=== PATIENT | male | born 1940 | race Caucasian/White ===

== ENCOUNTER 2017-12-21 18:29 | Inpatient (IN) ==
[2017-12-21] MEDS ORDERED: Ondansetron 4 MG/2 ML VIAL IVP PRN (20:41)
[2017-12-21] MEDS ORDERED: OXYCODONE Oral CONC 10 MG/0.5 ML ORAL.SYG SL PRN (20:43)
[2017-12-21] MEDS: D5% in 0.45% NACL 1,000 ML IVC SCH (22:37)
[2017-12-22 06:33] LABS: Calcium 9.9 mg/dL (8.6-10.3)
--- NOTE | 2017-12-22 10:04 | General Surg History&Physical ---
Date of Encounter: 12/22/17 Time of Encounter: 09:58 Assessment and Plan (1) SBO (small bowel obstruction) Current Visit: Yes Status: Acute The assessment and plan as outlined above was discussed with the patient and/or family members who expressed understanding and agreement. All questions were answered. Partial small bowel obstruction with noted transition point suspected at a tiny bilobed. Umbilical ventral hernia. CT notes multiple mid to distal small bowel dilated loops measuring up to 4.6 cm in diameter with transition point as described. No free air, ascites, pneumatosis, or mesenteric edema. Status post cholecystectomy without evidence of fluid collection or inflammatory changes in the gallbladder fossa. Mild ventral body while edema. Additional incidental findings including hepatic steatosis, renal cyst, and adenomatous hyperplasia of the adrenal glands. He is distended, uncomfortable, and tympanic. Of note, the patient reported the "NG fell out, and I didn't let them put it back in." He reports feeling nauseated, short of breath related to discomfort and abdominal swelling, and denies passing flatus. He is not agreeable to having the NG tube replaced at this time. He states he would agree to an x-ray and labs to further evaluate. I did reinforce the need for NG tube given SBO and abdominal distention. PT states he will consider after testing. Plan: Admit for observation NPO, hold home meds, Supportive care and discomfort management IV fluids-bolus 0.9 slaine now for EVER D5.45 maintenance IV fluids PPI therapy DVT prophylaxis PRN antiemetics will need NG replaced. Will continue to discuss this with patient and make recommendation CT/CT abd pelvis wo no iv no oral IMPRESSION: 1. Mid to distal small bowel obstruction, with transition point suspected at a tiny bilobed periumbilical ventral hernia. No free air, ascites, pneumatosis, or mesenteric edema. 2. Status post cholecystectomy without evidence of fluid collection or inflammatory change in the gallbladder fossa. 3. Bi-iliac endograft noted. There is fusiform aneurysmal dilatation of the abdominal aorta, measuring up to 3.9 cm, mildly increased from the previous study dated 10/23/2013 where it measured 3.4 cm. Detailed assessment is limited on this unenhanced study. Follow-up recommendations below. 3.0-3.4 cm: Every 3 years. 3.5-3.9 cm: Every 1 year. 4. Mild ventral body wall edema. 5. Additional incidental findings include hepatic steatosis, renal cysts, and adenomatous hyperplasia of the adrenal glands. (2) Chronic anticoagulation Current Visit: Yes Status: Acute Status post ablation for atrial flutter [facility] 02/2014, status post maze for atrial fibrillation/2012 noted (failed many maze) currently taking baby aspirin daily. Per record review Coumadin with DC'd in March 2014 due to a G.I. bleed. (3) EVER (acute kidney injury) Current Visit: Yes Status: Acute The assessment and plan as outlined above was discussed with the patient and/or family members who expressed understanding and agreement. All questions were answered. Creatinine 1.50 today, 1.72 on 12/21, baseline appears to be .85 to 1.06 Plan: bolus with 0.9 normal saline 1 L continue maintenance fluids D5 .45 recheck labs in the AM. Avoid nephrotoxins (4) Umbilical hernia Current Visit: No Status: Acute The assessment and plan as outlined above was discussed with the patient and/or family members who expressed understanding and agreement. All questions were answered. See assessment/plan above Per ER notes, Procedure note with IV conscious sedation gentle pressure on his umbilicus and surrounding tissue seemed to reduce his hernia however it may be attempting to return. Qualifiers: Obstruction and gangrene presence: with obstruction but without gangrene Qualified Code(s): K42.0 - Umbilical hernia with obstruction, without gangrene (5) Thrombocytosis Current Visit: No Status: Chronic The assessment and plan as outlined above was discussed with the patient and/or family members who expressed understanding and agreement. All questions were answered. (6) Iron deficiency anemia due to chronic blood loss Current Visit: No Status: Chronic The assessment and plan as outlined above was discussed with the patient and/or family members who expressed understanding and agreement. All questions were answered. (7) Smoking history Current Visit: Yes Status: Acute The assessment and plan as outlined above was discussed with the patient and/or family members who expressed understanding and agreement. All questions were answered. Scheduled duonebs IS Nicotine patch Consult RT for aggressive pulmonary toileting and scheduled duonebs (8) T2DM (type 2 diabetes mellitus) Current Visit: Yes Status: Acute The assessment and plan as outlined above was discussed with the patient and/or family members who expressed understanding and agreement. All questions were answered. Hold metformin Q4H accuchesck while NPO Consult hospitalist for chronic conditions/comorbidity management Qualifiers: Diabetes mellitus complication status: with other specified complication Diabetes mellitus termite exterminator insulin use: without assisted use Qualified Code( s): E11.69 - Type 2 diabetes mellitus with other specified complication (9) COPD (chronic obstructive pulmonary disease) Current Visit: Yes Status: Acute The assessment and plan as outlined above was discussed with the patient and/or family members who expressed understanding and agreement. All questions were answered. See smoking history plan consult hospitalist for chronic conditions/comorbidity management Qualifiers: COPD type: COPD with acute exacerbation Qualified Code(s): J44.1 - Chronic obstructive pulmonary disease with (acute) exacerbation (10) ASHD (arteriosclerotic heart disease) Current Visit: Yes Status: Acute Status post left renal artery PTCA and stent placement 2012, static post iliac artery stenting, non-ischemic cardiomyopathy most recent echo with EF 60% 2013 (11) S/P Maze operation for atrial fibrillation Current Visit: No Status: Chronic Low-dose ASA for chronic anticoagulation. (12) S/P ablation of atrial flutter Current Visit: Yes Status: Acute Consult hospitalist for chronic condition/comorbidity management (13) Sleep apnea Current Visit: Yes Status: Acute Consult hospitalist for chronic condition/comorbidity management Qualifiers: Sleep apnea type: unspecified type Qualified Code(s): G47.30 - Sleep apnea , unspecified (14) HTN (hypertension) Current Visit: Yes Status: Chronic Consult hospitalist for chronic condition/comorbidity management Qualifiers: Hypertension type: essential hypertension Qualified Code(s): I10 - Essential (primary) hypertension (15) AAA (abdominal aortic aneurysm) without rupture Current Visit: Yes Status: Chronic Consult hospitalist for chronic condition/comorbidity management see CT report for updated imaging and recommendations (16) PVD (peripheral vascular disease) Current Visit: No Status: Chronic Consult hospitalist for chronic condition/comorbidity management History of Present Illness Chief complaint: nausea and vomiting HPI: Mr. Garay is a 76 year old male with a past medical history of type II diabetes mellitus not on insulin, atrial fibrillation with (failed mini-maze in February 2013, atrial flutter S/P ablation ([facility] 02/2014), anticoagulation with baby aspirin (Coumadin d/c'd in March 2014 because of G.I. bleed), CAD (left renal artery PTCA and iliac artery stenting), non-ischemic cardiomyopathy echocardiogram 10/2014 with EFF 60%, COPD, smoker 1 packs per day since age 21, hypertension, sleep apnea on CPAP, PVD, AAA, G.I. bleed, BPH, noted colonoscopy 2014 and right hemicolectomy 2014 multiple polyps that [facility] Dr. Stallworth (pt reports 3 feet of colon removed at that time. Surgical history includes renal artery stents, bilateral cataracts, colonoscopy with polypectomy, EGD, ablation and maze as previously described, lucrative loop recorder 05/2014, right eye surgery [facility], umbilical hernia and right hemicolectomy surgery for multiple polyps [facility] 08/02/2015, colonoscopy 10/2017, eardrum replaced it [facility] 10/2015 and recent surgical notably intervals surgical history of an uncomplicated robotic cholecystectomy with intraoperative choliangiogram on 12/16/2017 for biliary dyskinesia. He was noted to have hernia at that time and recommended to have surgical intervention on this coming Thursday. He reported to the emergency department per [facility] office recommendations for a four-day history of that abdominal pain, nausea, and uncontrollable vomiting that he reported as ho and dark green. He states he has not been able to hold down any food since his operation. He states that on the 1st day after the operation he began having nausea and vomiting and has not been able to keep anything down including liquids since that time. He denies fever, chills, black, bloody, or tarry stool, constipation, syncope, or near syncope. He endorses feelings of generalized weakness and fatigue, abdominal pain that is diffuse but worse around the belly button, continued vomiting, and reported loose stool yesterday. He denies passing gas. He was evaluated in the emergency department in was diagnosed with a small bowel obstruction with transition point possibly at an umbilical hernia. This was attempted to be reduced in the emergency department in the patient states that he felt no improvement afterwards. Past Med Surg Social Fam HX - Past Medical History Source: patient, old records reviewed Medical history: aortic aneurysm, atrial fibrillation, cancer, cardiomyopathy, COPD, coronary artery disease, diabetes, GI bleed, hyperlipidemia, hypertension , peripheral artery disease, other (AAA) Psychiatric history: depression - Past Surgical History Surgical History: angioplasty/stent, cancer surgery, cataract, cholecystectomy, colectomy, herniorrhaphy, LE stent(s), vascular surgery, other - Social History Smoking Status: Current every day smoker Smokeless Tobacco Status: No Alcohol use: none Drug use: none Medications and Allergies Aspirin [Lo-Dose Aspirin EC] 81 mg PO DAILY #0 10/05/17 [History] Atorvastatin [Lipitor] 40 mg PO DAILY 10/05/17 [History] Escitalopram [Lexapro] 20 mg PO DAILY 10/05/17 [History] Fenofibrate Nanocrystallized [Triglide] 160 mg PO DAILY 10/05/17 [History] Hyoscyamine SL [Levsin Sl] 1 tab SL Q4-6H PRN 10/05/17 [History] Lisinopril [Zestril] 5 mg PO DAILY 10/05/17 [History] Omeprazole [PriLOSEC] 20 mg PO DAILY 10/05/17 [History] Vit C/E/Zn/Coppr/Lutein/Zeaxan [Preservision Areds 2 Softgel] 1 cap PO DAILY #0 10/05/17 [History] buPROPion HCl [Zyban] 150 mg PO QAM 10/05/17 [History] metFORMIN [Glucophage] 500 mg PO BIDWM 10/05/17 [History] Albuterol Neb [Proventil Neb] 2.5 mg IH TID PRN 12/01/17 [History] OxyCODONE/APAP 5/325 [Percocet 5/325 MG] 1 each PO Q6HR PRN 7 Days #14 tablet [Rx] 3 Allergy/AdvReac Type Severity Reaction Status Date / Time rivaroxaban [From Xarelto] AdvReac See Verified 12/16/17 12:49 Comments Review of Systems All systems PM: reviewed and no additional remarkable complaints except as stated All systems PM: A 10-system review of systems was performed and is negative for pertinent findings except as documented above in the HPI. General Surgery Exam Initial Vital Signs Temp Pulse Resp BP Pulse Ox 97.6 F 89 16 140/70 94 12/21/17 19:56 12/21/17 19:56 12/21/17 19:56 12/21/17 19:56 12/21/17 19:56 - General physical appearance moderate distress, severe pain, obese, other (Regarding posture) - Eyes normal ocular movement - ENT atraumatic, normocephalic - Neck trachea midline, no venous distension - Respiratory other (Decreased breath sounds wheezing noted) - Cardiovascular Cardiovascular exam: Present: tachycardia, distant heart sounds - Abdomen Abdomen general surgery: Present: distended, tender. Absent: bowel sounds present Abdominal Tenderness: Present: diffusely (Diffusely tender but most centered around the umbilicus) Hernia: Present: umbilical - Integumentary Integumentary general surgery: Present: warm and dry - Neurologic Present: CN 2-12 grossly intact, normal coordination, normal sensation - Musculoskeletal Present: normal gait, other (garding posture) - Psychiatric Psychiatric general surgery: Present: A&Ox3, appropriate, oriented to person, oriented to place, oriented to time, speech is normal, memory intact Results - Labs 12/22/17 10:16 12/22/17 05:36 Abnormal lab results Chloride 95 mEq/L (98-107) L 12/22/17 05:36 BUN 56 mg/dL (8-23) H 12/22/17 05:36 Creatinine 1.50 mg/dL (0.70-1.30) H 12/22/17 05:36 Est GFR ( Amer) 55 (> 60) L 12/22/17 05:36 Est GFR (Non-Af Amer) 46 (> 60) L 12/22/17 05:36 BUN/Creatinine Ratio 37 (6-26) H 12/22/17 05:36 Glucose 168 mg/dL (70-105) H 12/22/17 05:36 POC Glucose 142 (58-89) H 12/22/17 05:23 Calculated Osmolality 303 (280-300) H 12/22/17 05:36 Diabetes panel 12/22/17 Range/Units 05:36 Sodium 137 (136-145) mEq/L Potassium 4.0 (3.5-5.1) mEq/L Chloride 95 L (98-107) mEq/L Carbon Dioxide 29 (23-29) mEq/L BUN 56 H (8-23) mg/dL Creatinine 1.50 H (0.70-1.30) mg/dL Glucose 168 H (70-105) mg/dL Calcium 9.9 (8.6-10.3) mg/dL Calcium panel 12/22/17 Range/Units 05:36 Calcium 9.9 (8.6-10.3) mg/dL Pituitary panel 12/22/17 Range/Units 05:36 Sodium 137 (136-145) mEq/L Potassium 4.0 (3.5-5.1) mEq/L Chloride 95 L (98-107) mEq/L Carbon Dioxide 29 (23-29) mEq/L BUN 56 H (8-23) mg/dL Creatinine 1.50 H (0.70-1.30) mg/dL Glucose 168 H (70-105) mg/dL Calcium 9.9 (8.6-10.3) mg/dL Adrenal panel 12/22/17 Range/Units 05:36 Sodium 137 (136-145) mEq/L Potassium 4.0 (3.5-5.1) mEq/L Chloride 95 L (98-107) mEq/L Carbon Dioxide 29 (23-29) mEq/L BUN 56 H (8-23) mg/dL Creatinine 1.50 H (0.70-1.30) mg/dL Glucose 168 H (70-105) mg/dL Calcium 9.9 (8.6-10.3) mg/dL All other labs normal.
[2017-12-22] MEDS ORDERED: Naloxone 0.4 MG/ML INJ IVP PRN (10:14)
[2017-12-22] MEDS ORDERED: OXYCODONE Oral CONC 10 MG/0.5 ML ORAL.SYG SL PRN (10:14)
[2017-12-22] MEDS ORDERED: 0.9 % Sodium Chloride 1,000 ML IVC SCH (10:15)
[2017-12-22] MEDS ORDERED: *HR* FentaNYL (PF) 100 MCG/2 ML VIAL IVP ONE (10:24)
[2017-12-22] MEDS ORDERED: *HR* Promethazine 25 MG/ML VIAL IM ONE (10:25)
[2017-12-22 10:30] LABS: Hematocrit 39.9 % (37.5-50.1); Hemoglobin 11.8 g/dL (12.9-16.9); Mean Corpuscular HGB Conc 29.6 g/dL (31.6-35.5); Mean Corpuscular Hemoglobin 25.8 pg (28.0-33.3); Mean Corpuscular Volume 87.3 fL (83.0-100.0); Mean Platelet Volume 13.6 fL (9.4-12.4); Nucleated Red Blood Cells 0.9 /100 WBC (0); Platelet Count 311 K/mcL (140-400); Red Blood Count 4.57 M/mcL (4.19-5.50); Red Cell Distribution Width 25.2 % (11.5-14.5)
[2017-12-22 10:46] LABS: INR 1.1; Prothrombin Time 11.8 Seconds (9.4-12.1)
[2017-12-22] MEDS ORDERED: *HR* Dextrose 50 % in Water (Syg) 50 ML SYRINGE IVP PRN (11:07)
[2017-12-22] MEDS ORDERED: Dextrose Gel 15 GM/37.5 ML TUBE PO PRN ×2 (11:07)
[2017-12-22] MEDS ORDERED: D5% in Water 1,000 ML IVC PRN (11:07)
[2017-12-22 11:24] LABS: Anisocytosis 3+ (Not Present); Eosinophils # 0.3 K/mcL (0.0-0.6); Lymphocytes # 0.7 K/mcL (0.6-4.6); Platelet Estimate Normal (Normal)
[2017-12-22 11:25] LABS: Polychromasia 1+ (Not Present); Target Cells 1+ (Not Present)
[2017-12-22] MEDS: Pantoprazole 40 MG VIAL IVP SCH (11:41)
[2017-12-22] MEDS: Insulin LISPRO 300 UNITS/3 ML VIAL SQ SCH ×3 (11:50→23:24)
[2017-12-22] MEDS: Ipratropium/Albuterol Neb 3 ML IH SCH ×4 (12:05→23:08)
[2017-12-22] MEDS: Ondansetron 4 MG/2 ML VIAL IVP SCH ×4 (14:39→23:23)
[2017-12-22] MEDS: Nicotine 14 MG PATCH.TD24 TD SCH (16:00)
[2017-12-22] MEDS: *HR* Heparin 5,000 UNIT/ML VIAL SQ SCH (17:24)
--- NOTE | 2017-12-22 18:25 | Internal Med History&Physical ---
<JeremierosemaryyassineGrabiel collier - Last Filed: 12/22/17 19:33> Date of Encounter: 12/22/17 Time of Encounter: 17:30 Assessment and Plan (1) SBO (small bowel obstruction) Current visit: Yes Status: Acute Acute SBO. Pt. reports sx began four days ago w/abdominal pain, nausea, vomiting , reduced bowel output and flatus. CT of the abdomen and pelvis today without contrast shows mid to distal small bowel obstruction with transition point suspected at a tiny bilobed periumbilical ventral hernia. No free air, ascites , pneumatosis, or mesenteric edema. CT notes multiple mid to distal small bowel dilated loops measuring up to 4.6 cm in diameter with transition point as described. Status post cholecystectomy without evidence of fluid collection or inflammatory changes in the gallbladder fossa. Mild ventral body with edema. Additional incidental findings including hepatic steatosis, renal cyst, and adenomatous hyperplasia of the adrenal glands. Patient reports abdominal pain, nausea, vomiting, shortness of breath, and distended abdomen. Patient had previous NG tube which fell out and does not want tube replaced at this time. NPO d/t current SBO and N/V. Surgical intervention planned for a.m. Pts. oral meds held. IV fluids. PPI therapy. Anti-emetics PRN. Continued discussion w/pt. regarding NG tube placement. Pt. is high risk for further morbidity and further complications based on current sx and SBO requiring surgical intervention, hx of GI bleed r/t current H/H changes, EVER, hx, and risk factors. Inpatient. (2) EVER (acute kidney injury) Current visit: Yes Status: Acute Acute kidney injury w/creatinine of 1.50 and GFR of 46 on admission. Pt. receiving IV fluids. Monitor strict I&O. Monitor renal function in f/u labs and avoid nephrotoxins. (3) CAD (coronary artery disease) Current visit: Yes Status: Chronic Hx of chronic CAD. Pts. current medications currently held d/t SBO. Hydralazine 10 mg IVP Q6 PRN for HTN. Continuous tele. Continue pts. meds post-surgery. Qualifiers: Coronary Disease-Associated Artery/Lesion type: [place] artery [place] vs. transplanted heart: [place] heart Associated angina: angina presence unspecified Qualified Code(s): I25.10 - Atherosclerotic heart disease of [place] coronary artery without angina pectoris (4) COPD (chronic obstructive pulmonary disease) Current visit: Yes Status: Chronic Hx of chronic COPD. Stable. Lungs clear on exam. Pt. reports mild SOB r/t current abdominal pain. Supplemental O2 w/titration and SpO2 monitoring. DuoNebs Q4 scheduled. Continue inhalers. Qualifiers: COPD type: unspecified COPD Qualified Code(s): J44.9 - Chronic obstructive pulmonary disease, unspecified (5) T2DM (type 2 diabetes mellitus) Current visit: Yes Status: Chronic Hx of chronic diabetes controlled by oral anti-hyperglycemics. Hold Glucophage. Low-dose correction insulin sliding scale w/hypoglycemic protocol. BG checks Q$ d/t NPO status. A1c in a.m. labs. Qualifiers: Diabetes mellitus complication status: with other specified complication Diabetes mellitus detention insulin use: without terminal press operator use Qualified Code( s): E11.69 - Type 2 diabetes mellitus with other specified complication (6) AAA (abdominal aortic aneurysm) without rupture Current visit: Yes Status: Chronic Hx of chronic AAA w/o rupture. CT of the abdomen/pelvis without contrast shows fusiform aneurysmal dilatation of the abdominal aorta measuring up to 3.9 cm, mildly increased from the previous study dated 10/23/13 where it measured 3.4 cm. Follow-up recommendations by 3.5-3.9 cm every 1 year. F/u w/ PCP. (7) HTN (hypertension) Current visit: Yes Status: Chronic Hx of chronic HTN. Monitor pt. and VS. Hydralazine 10 mg IVP Q6 IVP PRN for HTN. Continue lisinopril post-surgery. Qualifiers: Hypertension type: essential hypertension Qualified Code(s): I10 - Essential (primary) hypertension (8) HLD (hyperlipidemia) Current visit: Yes Status: Chronic Hx of chronic HLD. Lipid panel in a.m. labs. Continue Lipitor post-surgery. Qualifiers: Hyperlipidemia type: pure hypercholesterolemia Qualified Code(s): E78.00 - Pure hypercholesterolemia, unspecified; E78.0 - Pure hypercholesterolemia (9) Iron deficiency anemia due to chronic blood loss Current visit: Yes Status: Chronic Hx of chronic anemia d/t blood loss. Hgb 11.8 and HCT 39.9 on 12/22. Was 12.2 and 39.8 on 12/21, up from 8.9 and 33.4 on 12/01. Monitor pt. for signs of bleeding. H/H in a.m. labs. (10) History of atrial fibrillation Current visit: Yes Status: Resolved Hx of atrial fibrillation. Pt. is post-ablation and is currently in sinus rhythm. Continuous tele. (11) DVT prophylaxis Current visit: Yes Status: Acute Heparin 5,000 units SQ Q8 for DVT prophylaxis. Bilateral SCDs on LEs for post- surgery. Monitor pt. for signs of bleeding. Internal Medicine - H&P: HPI Chief complaint: Abdominal Pain Admitted From: Intrahospital Transfer Plans for Post Hospital Care: Home History of present illness: Mr. Garay is a 76 year old male with medical hx of aortic aneurysm, history of atrial fibrillation, cancer, cardiomyopathy, COPD, CAD, diabetes, previous GI bleeding, HLD, HTN, and PAD presents from the [facility] ED with chief complaint of abdominal pain and distention, and SOB for the past several days w/ worsening sx. Pt. reports hx of GI bleeding d/t Xarelto but denies current bleeding. Pt. reports some nausea and dizziness w/ambulation but denies recent illness and recent bowel movement, vomiting, ability to pass flatus, changes in vision, chest pain, palpitations, headache, cough, chest congestion, unusual bleeding, pedal edema, numbness, tingling, pre-syncope, or syncope. Past Med Surg Social Fam HX - Past Medical History Source: patient, old records reviewed Medical history: aortic aneurysm, atrial fibrillation, cancer, cardiomyopathy, COPD, coronary artery disease, diabetes, GI bleed, hyperlipidemia, hypertension , peripheral artery disease, other (AAA) Psychiatric history: depression - Past Surgical History Surgical History: angioplasty/stent, cancer surgery, cataract, cholecystectomy, colectomy, herniorrhaphy, LE stent(s), vascular surgery, other - Social History Smoking Status: Current every day smoker Smokeless Tobacco Status: No Alcohol use: none Drug use: none Current living situation: Home, With Family Activity Level: Independent ambulation, Uses cane/walker Recent Out of Country Travel Within the Last 8 Weeks: No Exposure or Possible Exposure to Illness During Travel: No Internal Medicine - H&P: Meds Aspirin [Lo-Dose Aspirin EC] 81 mg PO DAILY #0 10/05/17 [History] Atorvastatin [Lipitor] 40 mg PO DAILY 10/05/17 [History] Escitalopram [Lexapro] 20 mg PO DAILY 10/05/17 [History] Fenofibrate Nanocrystallized [Triglide] 160 mg PO DAILY 10/05/17 [History] Hyoscyamine SL [Levsin Sl] 1 tab SL Q4-6H PRN 10/05/17 [History] Lisinopril [Zestril] 5 mg PO DAILY 10/05/17 [History] Omeprazole [PriLOSEC] 20 mg PO DAILY 10/05/17 [History] Vit C/E/Zn/Coppr/Lutein/Zeaxan [Preservision Areds 2 Softgel] 1 cap PO DAILY #0 10/05/17 [History] buPROPion HCl [Zyban] 150 mg PO QAM 10/05/17 [History] metFORMIN [Glucophage] 500 mg PO BIDWM 10/05/17 [History] Albuterol Neb [Proventil Neb] 2.5 mg IH TID PRN 12/01/17 [History] OxyCODONE/APAP 5/325 [Percocet 5/325 MG] 1 each PO Q6HR PRN 7 Days #14 tablet [Rx] 3 Allergy/AdvReac Type Severity Reaction Status Date / Time rivaroxaban [From Xarelto] AdvReac See Verified 12/16/17 12:49 Comments All Systems PM: A 10-system review of systems was performed and is negative for pertinent findings except as documented above in the HPI. - Constitutional Constitutional: no chills, no fever(s), no night sweats - EENT Eyes: no change in vision, no discharge, no pain, no photophobia Ears: no ear discharge, no ear pain, no tinnitus Nose, mouth and throat: no dysphagia, no nasal discharge, no neck pain, no sore throat - Breasts Breasts: as per HPI - Cardiovascular Cardiovascular ROS IM: as per HPI, dyspnea, dyspnea on exertion, no chest pain, no diaphoresis, no lightheadedness, no palpitations, no syncope - Respiratory Respiratory: as per HPI, dyspnea, dyspnea on exertion, no cough, no wheezing, no excessive phlegm production - Gastrointestinal Gastrointestinal: as per HPI, abdominal pain, change in bowel habits (No bowel movement or flatus recently), nausea, no diarrhea, no hematemesis, no hematochezia, no melena, no vomiting - Genitourinary Genitourinary ROS male: as per HPI - Musculoskeletal Musculoskeletal ROS IM: no numbness, no tingling - Integumentary Integumentary IM: no rash, no unusual bruising - Neurological Neurological ROS: as per HPI, dizziness, no confusion, no convulsions, no focal weakness, no numbness, no tingling, no tremor(s) - Psychiatric Psychiatric: as per HPI, depression - Endocrine Endocrine IM: as per HPI - Hematologic/Lymphatic Hematologic/Lymphatic: no easy bruising - Allergic/Immunologic Allergic/Immunologic: as per HPI - Constitutional Vitals: Temp Pulse Resp BP Pulse Ox 98.5 F 86 16 113/69 94 12/22/17 16:18 12/22/17 16:18 12/22/17 16:45 12/22/17 16:18 12/22/17 16:45 General appearance: Present: cooperative, A&O X 3, pleasant, no acute distress, obese, answers questions appropriately - Head Head exam: Present: atraumatic, normocephalic - Eye Eye exam: Present: PERRL, conjuntiva pink, sclera anicteric Pupils: Present: PERRL - ENT ENT exam: Present: normal exam - Neck Neck exam general surgery: Present: supple, trachea midline. Absent: lymphadenopathy - Respiratory Respiratory exam: Present: CTAB. Absent: accessory muscle use, rales, rhonchi, wheezes - Cardiovascular Cardiovascular exam: Present: RRR, +S1, +S2. Absent: diastolic murmur, gallop, rubs, systolic murmur - GI/Abdominal GI/Abdominal exam: Present: normal bowel sounds, soft, no peritoneal signs. Absent: distended, tenderness - Rectal Rectal exam: Present: deferred - Additional comments: exam deferred. - Extremities Exam Extremities exam: Present: warm, radial pulses palpable and symmetrical. Absent : calf tenderness, cyanotic, pedal edema - Back Exam Back exam: Present: normal inspection - Neurological Exam Neurological exam: Present: CN II-XII intact, oriented X3, no focal deficits. Absent: pronater drift, facial droop, speech deficit - Psychiatric Psychiatric exam: Present: normal affect, normal mood - Skin Skin exam: Present: dry, intact Internal Med - H&P Results - Labs CBC & Chem 7: 12/22/17 10:16 12/22/17 05:36 Labs: Short CBC 12/22/17 Range/Units 10:16 WBC 7.0 (4.3-11.1) K/mcL Hgb 11.8 L (12.9-16.9) g/dL Hct 39.9 (37.5-50.1) % Plt Count 311 (140-400) K/mcL Neutrophils # 5.0 (1.6-8.9) K/mcL BMP 12/22/17 05:36 Sodium 137 Potassium 4.0 Chloride 95 L Carbon Dioxide 29 BUN 56 H Creatinine 1.50 H Glucose 168 H Calcium 9.9 - EKG Data EKG shows normal: sinus rhythm - EKG Data Prior EKG available for review: no EKG comments: 12/22/17 18:35 EKG dated 12/22/17 shows sinus rhythm and nonspecific T-wave abnormality. - Impressions ITS Impressions Abdomen X-Ray 12/22/17 10:22 IMPRESSION: 1. Overall no significant interval change of small bowel dilation related to small bowel obstruction. No free air. D/ / 12/22/2017 11:47:04 Carolyn Brennan MD / Edith Dwyer Interpreting Provider: Carolyn Brennan MD Chest X-Ray 12/22/17 10:22 IMPRESSION: Stable chest with no new acute cardiopulmonary findings. D/ / Carolyn Brennan MD / Carolyn Brennan MD Interpreting Provider: Carolyn Brennan MD - Diagnostic Studies Abdominal x-ray Additional comments: Impressions Abdomen X-Ray 12/22/17 10:22 IMPRESSION: 1. Overall no significant interval change of small bowel dilation related to small bowel obstruction. No free air. D/ / 12/22/2017 11:47:04 Carolyn Brennan MD / Edith Dwyer Interpreting Provider: Carolyn Brennan MD Chest x-ray Additional comments: Impressions Chest X-Ray 12/22/17 10:22 IMPRESSION: Stable chest with no new acute cardiopulmonary findings. D/ / Carolyn Brennan MD / Carolyn Brennan MD Interpreting Provider: Carolyn Brennan MD <Yoni Roberts - Last Filed: 12/22/17 23:36> Date of Encounter: 12/22/17 Internal Medicine - H&P: HPI History of present illness: Mr. Garay is a 76 year old male All Systems PM: A 10-system review of systems was performed and is negative for pertinent findings except as documented above in the HPI. - Constitutional Vitals: Temp Pulse Resp BP Pulse Ox 97.6 F 86 16 106/64 93 12/22/17 23:24 12/22/17 23:24 12/22/17 23:24 12/22/17 23:24 12/22/17 23:24 Internal Med - H&P Results - Labs CBC & Chem 7: 12/22/17 10:16 12/22/17 05:36 Labs: Short CBC 12/22/17 Range/Units 10:16 WBC 7.0 (4.3-11.1) K/mcL Hgb 11.8 L (12.9-16.9) g/dL Hct 39.9 (37.5-50.1) % Plt Count 311 (140-400) K/mcL Neutrophils # 5.0 (1.6-8.9) K/mcL BMP 12/22/17 05:36 Sodium 137 Potassium 4.0 Chloride 95 L Carbon Dioxide 29 BUN 56 H Creatinine 1.50 H Glucose 168 H Calcium 9.9 - Impressions ITS Impressions Abdomen X-Ray 12/22/17 10:22 IMPRESSION: 1. Overall no significant interval change of small bowel dilation related to small bowel obstruction. No free air. D/ / 12/22/2017 11:47:04 Carolyn Brennan MD / Edith Dwyer Interpreting Provider: Carolyn Brennan MD Chest X-Ray 12/22/17 10:22 IMPRESSION: Stable chest with no new acute cardiopulmonary findings. D/ / Carolyn Brennan MD / Carolyn Brennan MD Interpreting Provider: Carolyn Brennan MD - Attending Attestation I have personally performed a face to face evaluation on this patient. I have reviewed and agree with the care plan except that noted above is a consultation note and not a history and physical. History and Exam by me shows: Patient presented to the hospital yesterday with abdominal distention nausea and vomiting. He is status post laparoscopic cholecystectomy 2 weeks ago. He was found to have a ventral hernia which was reduced. Currently reports pain is 0/10, he tolerated oral diet. His nausea has resolved. Patient denies chest pain with exertion and shortness of breath. He does say that his heart rate increases to 120 when he ambulates 100 feet on flat ground. He cannot walk up stairs due to chronic back pain and sciatica. Exercise capacity is less than 4MET. His calculated RCR I is to which suggests a perioperative risk of cardiovascular complication of 6.6. He did have a stress test done and 2016 less than 4 months ago which was negative. A small sized perfusion defect likely representing artifact per medical record review. Gated EF was 64%. Plan: Proceed with surgery with no further cardiac workup necessary. I advised smoking cessation. Continue with IV fluids for acute renal failure due to volume depletion secondary to protracted vomiting and nausea.
--- NOTE | 2017-12-22 19:32 | Anesthesia Evaluation PreOp ---
Date of Encounter: 12/22/17 Time of Encounter: 20:47 - Past History Planned Operation: Robotic lap incisional hernia repair Cardiac History: HTN, Hyperlipidemia, Arrhythmia (atrial flutter s/p ablation, atrial fibrillation - hasn't had issues in a long time) Pulmonary History: Smoker, COPD FOOD OPERATIONS MANAGER History: Denies Any Significant HX Other Medical History: Diabetes Type II, Other (currently with small bowel obstruction) Anesthesia History: No Prior Anesthetic Complications, Past Anesthesia (Recent cholecystectomy) Alcohol Use: none Drug use: none Medications and Allergies Aspirin [Lo-Dose Aspirin EC] 81 mg PO DAILY #0 10/05/17 [History] Atorvastatin [Lipitor] 40 mg PO DAILY 10/05/17 [History] Escitalopram [Lexapro] 20 mg PO DAILY 10/05/17 [History] Fenofibrate Nanocrystallized [Triglide] 160 mg PO DAILY 10/05/17 [History] Hyoscyamine SL [Levsin Sl] 1 tab SL Q4-6H PRN 10/05/17 [History] Lisinopril [Zestril] 5 mg PO DAILY 10/05/17 [History] Omeprazole [PriLOSEC] 20 mg PO DAILY 10/05/17 [History] Vit C/E/Zn/Coppr/Lutein/Zeaxan [Preservision Areds 2 Softgel] 1 cap PO DAILY #0 10/05/17 [History] buPROPion HCl [Zyban] 150 mg PO QAM 10/05/17 [History] metFORMIN [Glucophage] 500 mg PO BIDWM 10/05/17 [History] Albuterol Neb [Proventil Neb] 2.5 mg IH TID PRN 12/01/17 [History] OxyCODONE/APAP 5/325 [Percocet 5/325 MG] 1 each PO Q6HR PRN 7 Days #14 tablet [Rx] 3 Allergy/AdvReac Type Severity Reaction Status Date / Time rivaroxaban [From Xarelto] AdvReac See Verified 12/16/17 12:49 Comments - Meds/Allergy Pre-op Review Medications Reviewed: Yes Allergies Reviewed: Yes Beta Blockers on Current Med List: No Anesthesia Results - Labs 12/22/17 10:16 12/22/17 05:36 - Imaging EKG: report reviewed, image reviewed (SINUS RHYTHM NONSPECIFIC T-WAVE ABNORMALITY) Anesthesia Exam Last Vital Signs Temp 98.5 F 12/22/17 16:18 Pulse 86 12/22/17 16:18 Resp 16 12/22/17 16:45 BP 113/69 12/22/17 16:18 Pulse Ox 94 12/22/17 16:45 Weight: 93 kg - HEENT Pupil (Motor): Pupils equal, EOMI Mallampati: III Teeth: Normal Oral Opening: Greater than 3 - FOOD OPERATIONS MANAGER LOC: Oriented - Cardiac Rhythm: Regular Murmur: None - Pulmonary Breath Sounds: bilateral Clear Respiratory Effort: Symmetrical Anesthesia Assess/Plan ASA Score: 3 Modified Greg Scale for Level of Consciousness: Cooperative, oriented, and tranquil Anesthetic Plan: General Monitoring Plan: Standard Monitors Recovery Plan: PACU
[2017-12-22] MEDS: D5% in 0.45% NACL 1,000 ML IVC SCH (20:48)
[2017-12-22] MEDS ORDERED: 0.9 % Sodium Chloride 500 ML IVC ONE (23:35)
[2017-12-23] MEDS: OXYCODONE Oral CONC 10 MG/0.5 ML ORAL.SYG SL PRN ×2 (02:53→07:57)
[2017-12-23] MEDS: Ipratropium/Albuterol Neb 3 ML IH SCH ×6 (04:22→23:55)
[2017-12-23] MEDS: *HR* Heparin 5,000 UNIT/ML VIAL SQ SCH ×2 (05:10→19:52)
[2017-12-23] MEDS: Ondansetron 4 MG/2 ML VIAL IVP SCH ×2 (05:15→07:49)
[2017-12-23] MEDS: Insulin LISPRO 300 UNITS/3 ML VIAL SQ SCH ×3 (06:24→19:55)
[2017-12-23 07:12] LABS: Hemoglobin A1C 6.1 %
[2017-12-23 07:15] LABS: Hemoglobin 11.5 g/dL (12.9-16.9)
[2017-12-23 07:17] LABS: Hematocrit 39.4 % (37.5-50.1); Mean Corpuscular HGB Conc 29.2 g/dL (31.6-35.5); Mean Corpuscular Hemoglobin 25.7 pg (28.0-33.3); Mean Corpuscular Volume 88.1 fL (83.0-100.0); Mean Platelet Volume 14.4 fL (9.4-12.4); Monocytes # 1.1 K/mcL (0.0-1.3); Platelet Count 286 K/mcL (140-400); Red Blood Count 4.47 M/mcL (4.19-5.50); Red Cell Distribution Width 25.2 % (11.5-14.5)
[2017-12-23 07:29] LABS: Potassium 3.1 mEq/L (3.5-5.1)
[2017-12-23 07:30] LABS: Chol/HDL Ratio 3.3 (0-4.9)
[2017-12-23] MEDS: Nicotine 14 MG PATCH.TD24 TD SCH (07:49)
[2017-12-23] MEDS: Pantoprazole 40 MG VIAL IVP SCH (07:49)
[2017-12-23 09:17] LABS: Basophils # 0.1 K/mcL (0.0-0.2); Eosinophils # 0.3 K/mcL (0.0-0.6); Lymphocytes # 0.7 K/mcL (0.6-4.6); Neutrophils # 4.8 K/mcL (1.6-8.9)
[2017-12-23 09:18] LABS: Anisocytosis 1+ (Not Present); Platelet Estimate Normal (Normal); Polychromasia 1+ (Not Present)
[2017-12-23] MEDS ORDERED: Potassium Chloride 40 MEQ, Lidocaine 1% 2 ML in D5% in Water 500 ML IVPB ONE (13:13)
--- NOTE | 2017-12-23 15:48 | Internal Med Progress Note ---
<Roman Garcia - Last Filed: 12/23/17 17:55> Date of Encounter: 12/23/17 Time of Encounter: 15:48 - Assessment and plan (1) SBO (small bowel obstruction) Current Visit: Yes Status: Acute Assessment and plan: CT notes mid to distal small bowel obstruction with changes in points suspected at periumbilical ventral hernia. Patient has plans to go to surgery with Dr. Leroy to undergo a robotic laparoscopic incisional hernia repair this evening. Patient is nothing by mouth, oral meds held, receiving IV fluids, zosyn, PPI therapy, antiemetics when necessary per surgery. Potassium is 3.1 and replacement was initiated, plan is to replace pending IV fluid choice of surgeon status post surgery. (2) EVER (acute kidney injury) Current Visit: Yes Status: Acute Assessment and plan: Patient experienced a KI his creatinine clearance is improved from 1.50-1.45 since admission. His normal range appears to be around 1.05. He received fluids. Strict I&O's. We will continue to monitor the patient's renal function replace electrolytes as mentioned above. (3) CAD (coronary artery disease) Current Visit: No Status: Chronic Assessment and plan: History of CAD. Current medications held due to SBO. Continue patient's medications status post surgery. Qualifiers: Coronary Disease-Associated Artery/Lesion type: [place] artery [place] vs. transplanted heart: [place] heart Associated angina: angina presence unspecified Qualified Code(s): I25.10 - Atherosclerotic heart disease of [place] coronary artery without angina pectoris (4) COPD (chronic obstructive pulmonary disease) Current Visit: Yes Status: Chronic Assessment and plan: History of chronic COPD. Stable at this time. Lungs were clear to auscultation bilaterally. Not currently on oxygen and satting well. Patient has scheduled DuoNeb's. Qualifiers: COPD type: unspecified COPD Qualified Code(s): J44.9 - Chronic obstructive pulmonary disease, unspecified (5) T2DM (type 2 diabetes mellitus) Current Visit: Yes Status: Chronic Assessment and plan: Patient is on low-dose traction insulin sliding scale. Qualifiers: Diabetes mellitus complication status: with other specified complication Diabetes mellitus terminal supervisor insulin use: without usp use Qualified Code( s): E11.69 - Type 2 diabetes mellitus with other specified complication (6) AAA (abdominal aortic aneurysm) without rupture Current Visit: Yes Status: Chronic Assessment and plan: Patient has history of AAA without rupture and graft. The CT of his abdomen and pelvis did show an abdominal aorta measuring up to 3.9 cm which was increased from an exam done in 2013. Follow-up recommendations at this time require one-year evaluations. Plan for follow-up with PCP. (7) HTN (hypertension) Current Visit: Yes Status: Chronic Assessment and plan: Patient has hydralazine 10 mg IV every 6 hours when necessary for hypertension. We will continue his home medications status post surgery. Qualifiers: Hypertension type: essential hypertension Qualified Code(s): I10 - Essential (primary) hypertension (8) HLD (hyperlipidemia) Current Visit: Yes Status: Chronic Assessment and plan: We will continue Lipitor post surgery. Qualifiers: Hyperlipidemia type: pure hypercholesterolemia Qualified Code(s): E78.00 - Pure hypercholesterolemia, unspecified; E78.0 - Pure hypercholesterolemia (9) History of atrial fibrillation Current Visit: Yes Status: Resolved Assessment and plan: History of a flip status post ablation and is currently in sinus rhythm continue telemetry monitoring - Subjective Interval history: Patient is a 76-year-old male with a past medical history of aortic aneurysm, A. fib, CVA, cardiomyopathy, COPD, CAD, GI bleed, DM, HTN, past abdominal surgical history including cholecystectomy, cancer, colectomy initially presenting to the emergency department 2 days ago for complaint of nausea and vomiting that has been occurring since his cholecystectomy that was done [address] scan in the emergency department revealed a small bowel obstruction with the transition point being a periumbilical ventral hernia. Initially in the emergency department manual reduction of the hernia was attempted and unsuccessful. An NG tube was placed, however then G-tube fell out and the patient refused another NG tube. surgery was conulted and the patient will be taken this afternoon for a robotic laparoscopic incisional hernia repair. The patient was receiving fluids for a KI which his creatinine improved from 1.72- 1.45. The patient's potassium is 3.1, he will supplementation and potassium correction status post surgery. - Constitutional Vitals: Temp Pulse Resp BP Pulse Ox 98.3 F 82 16 102/57 93 12/23/17 10:58 12/23/17 10:58 12/23/17 11:21 12/23/17 10:58 02/14/18 11:21 General appearance: Present: cooperative, A&O X 3, pleasant, no acute distress, obese, answers questions appropriately - Head Head exam: Present: atraumatic, normal inspection, normocephalic - Eye Eye exam: Present: normal appearance, PERRL - Neck Neck exam general surgery: Present: full ROM, normal inspection - Respiratory Respiratory exam: Present: CTAB. Absent: respiratory distress, rhonchi, stridor , wheezes - Cardiovascular Cardiovascular exam: Present: RRR, +S1, +S2 - GI/Abdominal GI/Abdominal exam: Present: distended, firm, hernia, hypoactive bowel sounds, tenderness (Mild tenderness over the period umbilical region.). Absent: rebound , rigid - Extremities Exam Extremities exam: Present: full ROM, normal inspection, warm. Absent: calf tenderness, tenderness - Back Exam Back exam: Present: normal inspection - Neurological Exam Neurological exam: Present: alert, oriented X3 - Psychiatric Psychiatric exam: Present: normal affect, normal mood - Skin Skin exam: Present: normal color, warm Internal Medicine: Result - Labs CBC & Chem 7: 12/23/17 06:39 12/23/17 06:39 Labs: Short CBC 12/23/17 Range/Units 06:39 WBC 7.0 (4.3-11.1) K/mcL Hgb 11.5 L (12.9-16.9) g/dL Hct 39.4 (37.5-50.1) % Plt Count 286 (140-400) K/mcL Neutrophils # 4.8 (1.6-8.9) K/mcL BMP 12/23/17 06:39 Sodium 137 Potassium 3.1 L Chloride 95 L Carbon Dioxide 32 H BUN 47 H Creatinine 1.45 H Glucose 163 H Calcium 9.0 - ABG Interpretation ABG results: PT/INR, D-dimer PT 11.8 Seconds (9.4-12.1) 12/22/17 10:16 Consult Discharge Plan - Plan Referrals: Blanca East MD [Primary Care Provider] - <Yong Ramirez - Last Filed: 12/23/17 18:58> Date of Encounter: 12/23/17 - Constitutional Vitals: Temp Pulse Resp BP Pulse Ox 99.9 F H 71 20 145/69 99 12/23/17 18:20 12/23/17 18:20 12/23/17 18:20 12/23/17 18:20 12/23/17 18:20 Internal Medicine: Result - Labs CBC & Chem 7: 12/23/17 06:39 12/23/17 06:39 Labs: Short CBC 12/23/17 Range/Units 06:39 WBC 7.0 (4.3-11.1) K/mcL Hgb 11.5 L (12.9-16.9) g/dL Hct 39.4 (37.5-50.1) % Plt Count 286 (140-400) K/mcL Neutrophils # 4.8 (1.6-8.9) K/mcL BMP 12/23/17 06:39 Sodium 137 Potassium 3.1 L Chloride 95 L Carbon Dioxide 32 H BUN 47 H Creatinine 1.45 H Glucose 163 H Calcium 9.0 - ABG Interpretation ABG results: PT/INR, D-dimer PT 11.8 Seconds (9.4-12.1) 12/22/17 10:16 - Attending Attestation I examined this patient and my medical decision-making was reviewed with the Resident Physician. I agree with the documented findings, disposition and treatment plan as described except to the extent set forth below. This is Dr. Jarett Ramirez
[2017-12-23] MEDS ORDERED: Albuterol 2.5 MG/3 ML NEBULIZER IH ONE (16:02)
[2017-12-23] MEDS ORDERED: Albuterol 2.5 MG/3 ML NEBULIZER ONE (16:04)
[2017-12-23] MEDS ORDERED: *HR* PHENYLEPHRINE 1,000 MCG/10 ML SYRINGE IVP ONE (16:33)
[2017-12-23] MEDS ORDERED: Acetaminophen IV 1,000 MG/100 ML INFUS..BTL ONE (16:44)
[2017-12-23] MEDS ORDERED: MORPHINE SUL Oral CONC 10 MG/0.5 ML ORAL.SYG SL PRN ×2 (16:52→20:03)
[2017-12-23] MEDS ORDERED: *HR* Labetalol 20 MG/4 ML SYRINGE IVP PRN (16:52)
[2017-12-23] MEDS ORDERED: Ipratropium Neb 0.5 MG NEBULIZER IH ONE (16:52)
[2017-12-23] MEDS ORDERED: Neostigmine Methylsulfate 3 MG/3 ML SYRINGE ONE (17:01)
--- NOTE | 2017-12-23 17:33 | Operative Note ---
Date of procedure: 12/23/17 Pre-op diagnosis: Incisional hernia with incarcerated small bowel Post-op diagnosis: same Procedure: Robotic incisional hernia repair with mesh and reduction of incarcerated small bowel Anesthesia: TYLOR Surgeon: Jann Leroy Was there an assistant pastry chef present: Yes Field Recruiter: Shayy Pham Estimated blood loss (cc): 5 Specimen: None Condition: stable Disposition: floor Procedure in Detail: After informed consent, the patient was taken the operating room placed in supine position. After adequate sedation and anesthesia the patient's abdomen was prepped and draped. A proper timeout was performed. A 12 mm incision was made on the patient's left abdomen at the level of the umbilicus in the posterior axillary line. Two 8 mm cannulas were placed in the left upper quadrant and left lower quadrant. Once in place, a caduet grasper and robotic scissors were used to reduce the incarcerated tissue from the midline hernia. A 12 cm symbotex mesh was loaded into the abdomen. The robot was docked over the patient's right hip. The robotic arms were connected to the port sites. A robotic grasper and needle warehouse associate driver was inserted. Upon inspection of the abdominal wall there was a small incisional hernia present with incarcerated non -strangulated small bowel. This was easily reduced. Once completed the defect was closed with 0 Vicryl suture. The mesh was then situated over the defect and it was sewn to the abdominal wall with an 0 vicryl suture in running fashion. Once completed, the needles were retrieved. The abdomen was deflated and the port sites were removed the 12 mm cannula site was closed with an 0 Vicryl suture in [id number] fashion. The skin was closed with 4-0 Vicryl suture. Dermabond was placed. One half percent Marcaine 30 mL's were placed in the incision sites. The patient tolerated the procedure well. All instrument counts and needle counts were correct at the end of the case.
[2017-12-23] MEDS ORDERED: *HR* Ropivacaine/PF 0.5% 20 ML VIAL ONE (17:51)
[2017-12-23] MEDS ORDERED: Lidocaine/EPI 1:100k 2% 20 ML VIAL ONE (17:51)
[2017-12-23] MEDS ORDERED: Lidocaine -MPF 2% 2 ML VIAL ONE (17:54)
--- NOTE | 2017-12-23 18:17 | Anesthesia Procedures ---
Date of Encounter: 12/23/17 Time of Encounter: 18:00 Procedures: Anesthesia - Nerve Block Procedure Date: 12/23/17 Time: 18:00 Surgical Procedure: Robotic Inguinal Hernia Repair Checklist: Correct Patient Identifier Correct side: Left Blood Thinner: No Monitor Applied: EKG, BP, Pulse Oximetry Supplemental Oxygen via Nasal Cannula (L/min): 2 Indication: Post Op Analgesia Pre-op Neuro Deficits: No Block Type: Other (Rescue TAP Block) Catheter placed: No Depth at skin (cm): 3 Sterile Technique: Yes Ultrasound used: Yes Anatomy identified: Yes Visual spread of Local: Yes Neuro Stimulation: No Blood on Needle Aspiration: No Smooth Injection of Local: Yes Pain with Injection of Local: No Prep: Chlorhexadine Needle: 21 x 100 mm Stimuplex Local: Ropivacaine (0.125%), Other (Lidocaine 0.5%) Volume (cc): 60cc Number of Attempts: 1 Complications: None/effective block Vitals: Vital Signs/O2 Sat/Glucose, Most Current Temp Pulse Resp BP Pulse Ox 12/23/17 18:10 71 18 142/90 98 12/23/17 18:00 72 18 147/80 98 12/23/17 17:50 75 18 139/73 96 12/23/17 17:40 73 18 156/74 97 12/23/17 17:30 73 18 146/67 96 12/23/17 17:20 98.8 F 80 18 143/62 95
--- NOTE | 2017-12-23 18:18 | Anesthesia Evaluation Post Op ---
Date of Encounter: 12/23/17 Time of Encounter: 18:25 - Vital Signs Vital Signs: Vital Signs/O2 Sat/Glucose, Most Current Temp Pulse Resp BP Pulse Ox 12/23/17 18:10 71 18 142/90 98 12/23/17 18:00 72 18 147/80 98 12/23/17 17:50 75 18 139/73 96 12/23/17 17:40 73 18 156/74 97 12/23/17 17:30 73 18 146/67 96 12/23/17 17:20 98.8 F 80 18 143/62 95 - Lungs Lungs: Clear Ascult./Percussion - Airway Airway: Non-obstructed - Cardiovascular Regular Rate - Mental Status Mental Status: Alert & Oriented, Answers Appropriately - Pain Pain Scale: 2 - Nausea Vomiting Nausea Vomiting: Not Present - Hydration Hydration: Ice chips - Discharge PostOp Status: Transfer Patient to floor
--- NOTE | 2017-12-23 18:51 | Event Note ---
Date of Encounter: 12/23/17 Time of Encounter: 18:48 He is seen post-op.. he feels remarkably well. Nursing reports O2 Sats about 90 % on 8 Liters.. he is not tachypnic and mentating well. Will wean to Vent. mask and watch closely. On a good day for him, he may be at 90%. There is also potential for post-op atelectasis. Aspiration is less likley. I do not see evidence of volume overload.. lungs are clear, effort is okay, and no gallops.
[2017-12-23] MEDS ORDERED: OXYCODONE Oral CONC 10 MG/0.5 ML ORAL.SYG SL PRN (20:03)
[2017-12-23] MEDS ORDERED: Dextrose Gel 15 GM/37.5 ML TUBE PO PRN ×2 (20:03)
[2017-12-23] MEDS ORDERED: D5% in Water 1,000 ML IVC PRN (20:03)
[2017-12-23] MEDS ORDERED: D5% in 0.45% NACL 1,000 ML IVC SCH (20:03)
[2017-12-23] MEDS ORDERED: Naloxone 0.4 MG/ML INJ IVP PRN (20:03)
[2017-12-23] MEDS ORDERED: *HR* Dextrose 50 % in Water (Syg) 50 ML SYRINGE IVP PRN (20:03)
[2017-12-24] MEDS: Insulin LISPRO 300 UNITS/3 ML VIAL SQ SCH ×2 (00:02→06:13)
[2017-12-24] MEDS: OXYCODONE Oral CONC 10 MG/0.5 ML ORAL.SYG SL PRN ×2 (00:04→09:06)
[2017-12-24] MEDS: Ipratropium/Albuterol Neb 3 ML IH SCH ×4 (03:41→15:42)
[2017-12-24] MEDS ORDERED: *HR* Heparin 5,000 UNIT/ML VIAL SQ SCH (06:00)
--- NOTE | 2017-12-24 07:13 | Internal Med Progress Note ---
<Roman Garcia - Last Filed: 12/24/17 15:40> Date of Encounter: 12/24/17 Time of Encounter: 10:01 - Assessment and plan (1) SBO (small bowel obstruction) Status: Resolved Assessment and plan: Patient underwent laparoscopic hernia repair yesterday evening. Currently on a full liquid diet per surgery. Patient has oxycodone 5 mg sublingual every 4 hours and oxycodone 10 mg sublingual every 4 hours as needed for pain Currently on Zosyn per surgery Patient states he has experienced flatus, however has not had a bowel movement yet (2) EVER (acute kidney injury) Status: Resolved Assessment and plan: Patient's creatinine has improved to 1.45 -> 1.23 and BUN from 47->33 The patient's potassium improved from 3.1 -> 3.3 will order further replacement today and recheck. Fluids stopped since patient no longer NPO. (3) CAD (coronary artery disease) Status: Chronic Assessment and plan: We will continue patient's home medication once diet is advanced Qualifiers: Coronary Disease-Associated Artery/Lesion type: [place] artery [place] vs. transplanted heart: [place] heart Associated angina: angina presence unspecified Qualified Code(s): I25.10 - Atherosclerotic heart disease of [place] coronary artery without angina pectoris (4) COPD (chronic obstructive pulmonary disease) Status: Chronic Assessment and plan: Lungs clear to auscultation bilaterally. Patient is satting at 90% on room air which is his normal. Scheduled DuoNeb labs. Qualifiers: COPD type: unspecified COPD Qualified Code(s): J44.9 - Chronic obstructive pulmonary disease, unspecified (5) T2DM (type 2 diabetes mellitus) Status: Chronic Assessment and plan: Patient is on low-dose insulin sliding scale. Qualifiers: Diabetes mellitus complication status: with other specified complication Diabetes mellitus mcfp insulin use: without mcfp use Qualified Code( s): E11.69 - Type 2 diabetes mellitus with other specified complication (6) AAA (abdominal aortic aneurysm) without rupture Status: Chronic Assessment and plan: The patient's CT of his abdomen and pelvis showed his by iliac endograft. There was fusiform aneurysmal dilation of the abdominal aorta that measured 3.9 cm. This was increased from a scan done in October 2013. At that time measured 3.4 cm. Current follow-up recommendations for the size of his AAA encourage annual follow-up going to the general vascular surgery. We will discuss this with patient. (7) HTN (hypertension) Status: Chronic Assessment and plan: Patient has hydralazine when necessary for hypertension. Stable at this time. Qualifiers: Hypertension type: essential hypertension Qualified Code(s): I10 - Essential (primary) hypertension (8) HLD (hyperlipidemia) Status: Chronic Assessment and plan: We will continue home medications once tolerating by mouth. Qualifiers: Hyperlipidemia type: pure hypercholesterolemia Qualified Code(s): E78.00 - Pure hypercholesterolemia, unspecified; E78.0 - Pure hypercholesterolemia (9) History of atrial fibrillation Status: Resolved Assessment and plan: History of atrial fibrillation status post ablation is currently in sinus rhythm at a normal rate. - Subjective Interval history: Patient is a 76-year-old male with a past medical history of aortic aneurysm, A. fib, CVA, cardiomyopathy, COPD, CAD, GI bleed, DM, HTN, past abdominal surgical history including cholecystectomy, cancer, colectomy initially presenting to the emergency department with the complaint of nausea and vomiting. He had a history of a recent cholecystectomy done [address] of his abdomen and pelvis showed a small bowel obstruction with a possible transition point of a ventral periumbilical hernia. The patient underwent laparoscopic incisional hernia repair yesterday evening. When returning from surgery the patient was satting at 90% on 8 L of oxygen. He was placed on a Ventimask at 35%. Otherwise, the patient was mentating well and did not appear to be in respiratory distress at that time. This morning the patient is sitting up in bed breathing and 92% on room air. States that he feels his breathing has improved mainly just has abdominal tenderness status post surgery. Surgery states that since the patient is tolerating a soft diet without nausea or vomiting and is passing flatus and at baseline regarding his COPD that he will be discharged today. Plan is for him to follow-up in 2-3 weeks with return precautions. - Constitutional Vitals: Temp Pulse Resp BP Pulse Ox 97.5 F L 76 17 111/61 91 12/24/17 05:48 12/24/17 05:48 12/24/17 05:48 12/24/17 05:48 12/24/17 05:48 General appearance: Present: cooperative, A&O X 3, pleasant, no acute distress, obese, answers questions appropriately Exam: The patient's vital signs are stable. Upon entry to the room the patient is sitting up in bed eating his full liquid diet. He is talkative and in no acute distress at this time. - Head Head exam: Present: atraumatic, normal inspection - Eye Eye exam: Present: EOMI, normal appearance, PERRL - Neck Neck exam general surgery: Present: full ROM, normal inspection, trachea midline. Absent: tenderness - Respiratory Respiratory exam: Present: CTAB. Absent: rales, respiratory distress, rhonchi, wheezes - Cardiovascular Cardiovascular exam: Present: RRR, +S1, +S2 - GI/Abdominal GI/Abdominal exam: Present: distended, hypoactive bowel sounds, tenderness, no peritoneal signs - Extremities Exam Extremities exam: Present: full ROM, normal capillary refill, normal inspection. Absent: calf tenderness, tenderness - Back Exam Back exam: Present: normal inspection. Absent: CVA tenderness (L), CVA tenderness (R) - Neurological Exam Neurological exam: Present: alert, oriented X3, no focal deficits - Psychiatric Psychiatric exam: Present: normal affect, normal mood - Skin Skin exam: Present: dry, normal color, warm Internal Medicine: Result - Labs CBC & Chem 7: 12/24/17 08:09 12/24/17 08:09 Labs: Short CBC 12/23/17 Range/Units 06:39 WBC 7.0 (4.3-11.1) K/mcL Hgb 11.5 L (12.9-16.9) g/dL Hct 39.4 (37.5-50.1) % Plt Count 286 (140-400) K/mcL Neutrophils # 4.8 (1.6-8.9) K/mcL BMP 12/23/17 06:39 Sodium 137 Potassium 3.1 L Chloride 95 L Carbon Dioxide 32 H BUN 47 H Creatinine 1.45 H Glucose 163 H Calcium 9.0 - ABG Interpretation ABG results: PT/INR, D-dimer PT 11.8 Seconds (9.4-12.1) 12/22/17 10:16 Consult Discharge Plan - Plan Instructions: How to Stop Smoking (GEN), Cigarette Smoking and Your Health (GEN ), Laparoscopic Herniorrhaphy (DC) Additional Instructions: General Surgical Discharge Instructions 1. No pushing, pulling, or lifting greater than 15 lbs for 4 weeks (depending upon procedure). 2. You may shower beginning today, but no tub baths, soaking, or swimming for 2 weeks. 3. You may resume driving when you are off narcotics and are safe to react in a car. 4. Take ibuprofen every 8 hours for discomfort. If this does not relieve discomfort, you may take the as needed Percocet. Take narcotics as directed. Do not take more narcotics then directed and do not share your narcotics with any other person. Do not drink alcohol while on narcotics. 5. Take stool softeners (Colace) or a water based laxative (Miralax) while taking narcotics. You may hold for loose stools. 6. Report any fevers greater than 100.5F, increase abdominal discomfort, drainage that looks like pus, increased redness or pain at the surgical site, or any vomiting. 7. Report any pain in the calves, shortness of breath, or rapid heartbeat. 8. Follow-up in the office as directed. 9. If you were prescribed antibiotics, do not stop them without talking to your provider. Referrals: Blanca East MD [Primary Care Provider] - Halle Santillan CNP [Advanced Practice Nurse] - Prescriptions: Ondansetron ODT [Zofran ODT] 4 mg SL Q6HR PRN #15 tab.rapdis PRN Reason: Nausea OxyCODONE/APAP 5/325 [Percocet 5/325 MG] 1 each PO Q6HR PRN 7 Days #28 tablet PRN Reason: Pain Ibuprofen [Motrin] 600 mg PO TID PRN #30 tablet PRN Reason: pain rated 1-5 Polyethylene Glycol 3350 [MiraLAX] 17 gm PO DAILY 30 Days #30 [email or web address] <Yong Ramirez - Last Filed: 12/24/17 17:41> Date of Encounter: 12/24/17 - Constitutional Vitals: Temp Pulse Resp BP Pulse Ox 97.7 F 72 17 116/48 93 12/24/17 13:58 12/24/17 13:58 12/24/17 13:58 12/24/17 13:58 12/24/17 13:58 Internal Medicine: Result - Labs CBC & Chem 7: 12/24/17 08:09 12/24/17 08:09 Labs: Short CBC 12/24/17 Range/Units 08:09 WBC 7.6 (4.3-11.1) K/mcL Hgb 10.2 L (12.9-16.9) g/dL Hct 34.6 L (37.5-50.1) % Plt Count 250 (140-400) K/mcL Neutrophils # 6.5 (1.6-8.9) K/mcL BMP 12/24/17 08:09 Sodium 133 L Potassium 3.3 L Chloride 100 Carbon Dioxide 27 BUN 33 H Creatinine 1.23 Glucose 167 H Calcium 8.0 L - ABG Interpretation ABG results: PT/INR, D-dimer PT 11.8 Seconds (9.4-12.1) 12/22/17 10:16 - Impressions Impressions Abdomen X-Ray 12/22/17 10:22 IMPRESSION: 1. Overall no significant interval change of small bowel dilation related to small bowel obstruction. No free air. D/ / 12/22/2017 11:47:04 Carolyn Brennan MD / Edith Dwyer Interpreting Provider: Carolyn Brennan MD - Attending Attestation I examined this patient and my medical decision-making was reviewed with the Resident Physician. I agree with the documented findings, disposition and treatment plan as described except to the extent set forth below. He was up in the room, walking without difficulty. No tachypnea. Abdomen still mildly distended minimal discomfort bowel sounds hypoactive. He was okay to go for surgery. This is Dr. Jarett Ramirez
[2017-12-24 08:47] LABS: Hematocrit 34.6 % (37.5-50.1); Hemoglobin 10.2 g/dL (12.9-16.9); Mean Corpuscular HGB Conc 29.5 g/dL (31.6-35.5); Mean Corpuscular Hemoglobin 26.1 pg (28.0-33.3); Mean Corpuscular Volume 88.5 fL (83.0-100.0); Mean Platelet Volume 14.7 fL (9.4-12.4); Platelet Count 250 K/mcL (140-400); Red Blood Count 3.91 M/mcL (4.19-5.50); Red Cell Distribution Width 24.8 % (11.5-14.5)
[2017-12-24] MEDS ORDERED: Nicotine 14 MG PATCH.TD24 TD SCH (09:00)
[2017-12-24] MEDS ORDERED: Pantoprazole 40 MG VIAL IVP SCH (09:00)
[2017-12-24 09:01] LABS: BUN/Creatinine Ratio 27 (6-26); Blood Urea Nitrogen 33 mg/dL (8-23); Carbon Dioxide 27 mEq/L (23-29); Chloride 100 mEq/L (98-107); Glucose 167 mg/dL (70-105); Magnesium 1.9 mg/dL (1.6-2.6); Osmolality,Calculated 287 (280-300); Potassium 3.3 mEq/L (3.5-5.1); Sodium 133 mEq/L (136-145); eGFR For African Americans > 60 (> 60); eGFR For Non-African Americans 58 (> 60)
[2017-12-24 10:04] LABS: Lymphocytes # 0.8 K/mcL (0.6-4.6); Monocytes # 0.3 K/mcL (0.0-1.3); Neutrophils # 6.5 K/mcL (1.6-8.9)
[2017-12-24 10:05] LABS: Anisocytosis 3+ (Not Present); Platelet Estimate Normal (Normal)
[2017-12-24] MEDS ORDERED: Potassium Chloride 40 MEQ, Lidocaine 1% 2 ML in D5% in Water 500 ML IVPB ONE (10:19)
[2017-12-24] MEDS ORDERED: Hyoscyamine SL 0.125 MG TAB.SUBL SL PRN (11:50)
[2017-12-24] MEDS ORDERED: Ibuprofen 600 MG TABLET PO PRN (11:52)
[2017-12-24] MEDS ORDERED: *HR* OxyCODONE/APAP 5/325 TABLET PO PRN (11:52)
[2017-12-24] MEDS ORDERED: Aspirin Enteric Coated 81 MG Tablet PO SCH (12:00)
[2017-12-24] MEDS ORDERED: BuPROPion XL (24 HR) 150 MG TABLET PO SCH (12:00)
--- NOTE | 2017-12-24 12:43 | Discharge Summary ---
Date of Encounter: 12/24/17 Time of Encounter: 12:42 - Discharge Diagnosis (1) SBO (small bowel obstruction) Priority: Primary Status: Resolved (2) Chronic anticoagulation Priority: Secondary Status: Acute (3) EVER (acute kidney injury) Priority: Primary Status: Resolved (4) Umbilical hernia Priority: Primary Status: Resolved Qualifiers: Obstruction and gangrene presence: with obstruction but without gangrene Qualified Code(s): K42.0 - Umbilical hernia with obstruction, without gangrene (5) Thrombocytosis Priority: Secondary Status: Chronic (6) Iron deficiency anemia due to chronic blood loss Priority: Secondary Status: Chronic (7) Smoking history Priority: Secondary Status: Acute (8) T2DM (type 2 diabetes mellitus) Priority: Secondary Status: Chronic Qualifiers: Diabetes mellitus complication status: with other specified complication Diabetes mellitus residential insulin use: without residential use Qualified Code( s): E11.69 - Type 2 diabetes mellitus with other specified complication (9) COPD (chronic obstructive pulmonary disease) Priority: Secondary Status: Chronic Qualifiers: COPD type: unspecified COPD Qualified Code(s): J44.9 - Chronic obstructive pulmonary disease, unspecified (10) ASHD (arteriosclerotic heart disease) Priority: Secondary Status: Acute (11) S/P Maze operation for atrial fibrillation Priority: Secondary Status: Chronic (12) S/P ablation of atrial flutter Priority: Secondary Status: Acute (13) Sleep apnea Priority: Secondary Status: Acute Qualifiers: Sleep apnea type: unspecified type Qualified Code(s): G47.30 - Sleep apnea , unspecified (14) HTN (hypertension) Priority: Secondary Status: Chronic Qualifiers: Hypertension type: essential hypertension Qualified Code(s): I10 - Essential (primary) hypertension (15) AAA (abdominal aortic aneurysm) without rupture Priority: Secondary Status: Chronic (16) PVD (peripheral vascular disease) Priority: Secondary Status: Chronic - Discharge Medications Prescriptions: Ondansetron ODT [Zofran ODT] 4 mg SL Q6HR PRN #15 tab.rapdis PRN Reason: Nausea OxyCODONE/APAP 5/325 [Percocet 5/325 MG] 1 each PO Q6HR PRN 7 Days #28 tablet PRN Reason: Pain Ibuprofen [Motrin] 600 mg PO TID PRN #30 tablet PRN Reason: pain rated 1-5 Polyethylene Glycol 3350 [MiraLAX] 17 gm PO DAILY 30 Days #30 powd.pack Home Medications: Aspirin [Lo-Dose Aspirin EC] 81 mg PO DAILY #0 10/05/17 [History] Atorvastatin [Lipitor] 40 mg PO DAILY 10/05/17 [History] Escitalopram [Lexapro] 20 mg PO DAILY 10/05/17 [History] Fenofibrate Nanocrystallized [Triglide] 160 mg PO DAILY 10/05/17 [History] Hyoscyamine SL [Levsin Sl] 1 tab SL Q4-6H PRN 10/05/17 [History] Lisinopril [Zestril] 5 mg PO DAILY 10/05/17 [History] Omeprazole [PriLOSEC] 20 mg PO DAILY 10/05/17 [History] Vit C/E/Zn/Coppr/Lutein/Zeaxan [Preservision Areds 2 Softgel] 1 cap PO DAILY #0 10/05/17 [History] buPROPion HCl [Zyban] 150 mg PO QAM 10/05/17 [History] metFORMIN [Glucophage] 500 mg PO BIDWM 10/05/17 [History] Albuterol Neb [Proventil Neb] 2.5 mg IH TID PRN 12/01/17 [History] Ibuprofen [Motrin] 600 mg PO TID PRN #30 tablet 12/24/17 [Rx] Ondansetron ODT [Zofran ODT] 4 mg SL Q6HR PRN #15 tab.rapdis 12/24/17 [Rx] OxyCODONE/APAP 5/325 [Percocet 5/325 MG] 1 each PO Q6HR PRN 7 Days #28 tablet [Rx] Polyethylene Glycol 3350 [MiraLAX] 17 gm PO DAILY 30 Days #30 powd.pack [Rx] Allergies/Adverse Reactions: 3 Allergy/AdvReac Type Severity Reaction Status Date / Time rivaroxaban [From Xarelto] AdvReac See Verified 12/16/17 12:49 Comments General Surgery Exam Initial Vital Signs Temp Pulse Resp BP Pulse Ox 97.6 F 89 16 140/70 94 12/21/17 19:56 12/21/17 19:56 12/21/17 19:56 12/21/17 19:56 12/21/17 19:56 - General physical appearance well developed, well nourished, no distress - ENT atraumatic, normocephalic - Neck trachea midline, no venous distension - Respiratory other (Decreased at baseline) - Cardiovascular Cardiovascular exam: Present: RRR, 15, 16 - Abdomen Abdomen general surgery: Present: bowel sounds present, soft, distended (Mildly distended; active bowel sounds noted.), tender (Expected postoperative) Hernia: Present: none - Incision Incision: Present: clean and dry, intact - Integumentary Integumentary general surgery: Present: warm and dry, no abnormal pigmentation - Neurologic Present: CN 2-12 grossly intact, normal coordination, normal sensation - Musculoskeletal Present: normal gait, normal posture - Psychiatric Psychiatric general surgery: Present: A&Ox3, appropriate, oriented to person, oriented to place, oriented to time, speech is normal, memory intact Date of admission: 12/22/17 14:13 Primary care physician: Blanca East, Consults: 12/22/17 13:25 Consult to Hospitalist [CONS] Routine Consulting Provider: [facility] Reason for Consult: Chronic condition management; Spoke with Dr. Roberts Time Notified: 13:25 Call Completed: Yes Discharging clinician: Jann Santillan) Anticipated date of discharge: 12/24/17 - Patient Status Disposition: Home, Self-Care Condition: Good Functional capacity at discharge: independent ambulation Overall status at discharge: patient is progressing back to baseline - Discharge Instructions Instructions: Laparoscopic Herniorrhaphy (DC), How to Stop Smoking (GEN), Cigarette Smoking and Your Health (GEN) Follow Up With: Blanca East MD [Primary Care Provider] - Halle Santillan CNP [Advanced Practice Nurse] - Additional Instructions: General Surgical Discharge Instructions 1. No pushing, pulling, or lifting greater than 15 lbs for 4 weeks (depending upon procedure). 2. You may shower beginning today, but no tub baths, soaking, or swimming for 2 weeks. 3. You may resume driving when you are off narcotics and are safe to react in a car. 4. Take ibuprofen every 8 hours for discomfort. If this does not relieve discomfort, you may take the as needed Percocet. Take narcotics as directed. Do not take more narcotics then directed and do not share your narcotics with any other person. Do not drink alcohol while on narcotics. 5. Take stool softeners (Colace) or a water based laxative (Miralax) while taking narcotics. You may hold for loose stools. 6. Report any fevers greater than 100.5F, increase abdominal discomfort, drainage that looks like pus, increased redness or pain at the surgical site, or any vomiting. 7. Report any pain in the calves, shortness of breath, or rapid heartbeat. 8. Follow-up in the office as directed. 9. If you were prescribed antibiotics, do not stop them without talking to your provider. - Diet and Activity Activity: increase activity as tolerated Diet: advance to your usual diet - Hospital Course Hospital course: Mr. Garay is a 76 year old male who presented on 12/22/2017 complaints of abdominal discomfort. He was noted to have had an interval history of laparoscopic cholecystectomy on 12/16/2017 for biliary dyskinesia. Preoperatively , he was noted to have an umbilical hernia and surgical intervention was planned for 12/25/2017. He [facility] to an [facility] [facility] on complaining of severe abdominal pain, nausea, and uncontrollable vomiting but he reported as ho and dark green. He stated he had not been able to hold any food down since his operation. CT of the abdomen and pelvis without contrast revealed a partial small bowel obstruction with noted transition point suspected of a tiny bilobed umbilical ventral hernia. He was also noted to have had an acute kidney injury for which he was treated with IV fluids. The hospitalist team must consult to during his admission for chronic condition management. He was taken to the operating room on 12/23/2017 where he underwent a robotic incisional hernia repair with mesh and reduction of incarcerated small bowel by Dr. Leroy. He is ambulating and voiding without difficulty. He is tolerating a soft diet without nausea or vomiting. He has not had a bowel movement, but is passing flatus regularly, denies SOB or difficulty urinating. He is at his baseline regarding COPD. His abdominal discomfort is overall controlled. We will begin d/ c planning to home with a follow up in the office in aprox 2-3 weeks. Time spent discussing smoking cessation with patient: more than 10 minutes - Time Spent with Patient Total time spent providing and/or coordinating discharge services: Less than 30 minutes Labs on day of discharge: Labs from last 24 hours 12/24/17 12/24/17 12/24/17 08:09 08:09 07:26 WBC 7.6 RBC 3.91 L Hgb 10.2 L Hct 34.6 L MCV 88.5 MCH 26.1 L MCHC 29.5 L RDW 24.8 H Plt Count 250 MPV 14.7 H Seg Neutrophils % 86.0 Lymphocytes % 10.0 Monocytes % 4.0 Neutrophils # 6.5 Lymphocytes # 0.8 Monocytes # 0.3 Platelet Estimate Normal Anisocytosis 3+ A Sodium 133 L Potassium 3.3 L Chloride 100 Carbon Dioxide 27 BUN 33 H Creatinine 1.23 Est GFR ( Amer) > 60 Est GFR (Non-Af Amer) 58 L BUN/Creatinine Ratio 27 H Glucose 167 H POC Glucose 170 H Calculated Osmolality 287 Calcium 8.0 L Magnesium 1.9 12/24/17 12/23/17 06:09 23:46 WBC RBC Hgb Hct MCV MCH MCHC RDW Plt Count MPV Seg Neutrophils % Lymphocytes % Monocytes % Neutrophils # Lymphocytes # Monocytes # Platelet Estimate Anisocytosis Sodium Potassium Chloride Carbon Dioxide BUN Creatinine Est GFR ( Amer) Est GFR (Non-Af Amer) BUN/Creatinine Ratio Glucose POC Glucose 162 H 323 H Calculated Osmolality Calcium Magnesium - Impressions ITS Impressions Abdomen X-Ray 12/22/17 10:22 IMPRESSION: 1. Overall no significant interval change of small bowel dilation related to small bowel obstruction. No free air. D/ / 12/22/2017 11:47:04 Carolyn Brennan MD / Edith Dwyer Interpreting Provider: Carolyn Brennan MD Chest X-Ray 12/22/17 10:22 IMPRESSION: Stable chest with no new acute cardiopulmonary findings. D/ / Carolyn Brennan MD / Carolyn Brennan MD Interpreting Provider: Carolyn Brennan MD
[2017-12-24 14:01] VITALS: BP 116/48
[2017-12-24] MEDS ORDERED: *HR* Metformin 500 MG TABLET PO SCH (17:00)
[2017-12-25] MEDS ORDERED: Fenofibrate 54 MG TABLET PO SCH (09:00)
== END 2017-12-24 17:33 | disposition home or self-care (01) | DRG 354 ==
LOC: 3ANU 18:56 → INTOOBSV 18:56
PROVIDERS: ADMIT Surgery; ATTEND Surgery

== ENCOUNTER 2022-05-08 22:11 | Observation (INO) ==
[2022-05-09] MEDS ORDERED: Acetaminophen 325 MG TABLET PO PRN ×2 (04:12)
[2022-05-09] MEDS ORDERED: Ondansetron 4 MG/2 ML VIAL IVP PRN (04:12)
[2022-05-09] MEDS ORDERED: Naloxone 0.4 MG/ML INJ IVP PRN (04:12)
[2022-05-09] MEDS ORDERED: 0.9 % Sodium Chloride 1,000 ML IVC SCH (04:15)
[2022-05-09] MEDS ORDERED: Dextrose Gel 15 GM/37.5 ML TUBE PO PRN ×2 (04:19)
[2022-05-09] MEDS ORDERED: D5% in Water 1,000 ML IVC PRN (04:19)
[2022-05-09] MEDS ORDERED: *HR* Dextrose 50 % in Water (Syg) 50 ML SYRINGE IVP PRN (04:19)
[2022-05-09] MEDS ORDERED: Insulin DETEMIR 100 UNIT/ML X5UNITS SUBQ SCH (04:30)
[2022-05-09] MEDS: *HR* Heparin 5,000 UNIT/ML VIAL SQ SCH ×2 (05:26→12:51)
[2022-05-09 05:48] LABS: Mean Corpuscular Volume 100.7 fL (83.0-100.0); Red Cell Distribution Width 14.5 % (11.5-14.5)
[2022-05-09 05:50] LABS: Hematocrit 29.3 % (37.5-50.1); Hemoglobin 9.7 g/dL (12.9-16.9); Immature Platelets 12.2 % (1.1-6.1); Mean Corpuscular HGB Conc 33.1 g/dL (31.6-35.5); Mean Corpuscular Hemoglobin 33.3 pg (28.0-33.3); Mean Platelet Volume 14.4 fL (9.4-12.4); Red Blood Count 2.91 M/mcL (4.19-5.50); White Blood Count 14.5 K/mcL (4.3-11.1)
[2022-05-09 06:19] LABS: Estimated Average Glucose 223 mg/dl; Hemoglobin A1C 9.4 %
[2022-05-09 06:53] LABS: Calcium 8.4 mg/dL (8.6-10.3)
[2022-05-09 08:36] VITALS: O2SAT 95
[2022-05-09] MEDS ORDERED: cefTRIAXone 1,000 MG in 0.9 % Sodium Chloride 10 ML IVP SCH (09:00)
[2022-05-09] MEDS: Insulin LISPRO 300 UNITS/3 ML VIAL SUBQ SCH ×2 (09:31→12:51)
[2022-05-09 15:38] VITALS: BP 140/70; PULSE 79; TEMP 97.5
== END 2022-05-09 17:00 | disposition home or self-care (01) ==
LOC: 2NENU → SUATTDRO 05-09 02:02
PROVIDERS: ADMIT Student in an Organized Health Care Education/Training Program; ATTEND Internal Medicine